=== PATIENT | male | born 1960 | race Caucasian/White ===

== ENCOUNTER 2019-11-27 16:04 | Emergency (ER) | payer BC ==
[2019-11-27] MEDS ORDERED: Hydromorphone 1 mg/ml Ampule IV ONE (16:45)
[2019-11-27] MEDS ORDERED: Sodium Chloride 0.9% 1000 ML 1,000 ML IV SCH (16:45)
[2019-11-27] MEDS ORDERED: Sodium Chloride 0.9% 1000 ML 1,000 ML ONE (16:52)
[2019-11-27] MEDS ORDERED: Hydromorphone 1 mg/ml Ampule ONE (16:52)
--- NOTE | 2019-11-27 16:59 | XRAY ---
Indication: Pain following fall. Comparison: None 3 view right elbow demonstrates posterior soft tissue swelling. No other bony, articular, or soft tissue abnormalities.
--- NOTE | 2019-11-27 18:28 | ERPHSYRPT ---
- History of Present Illness Time Seen by Provider: 11/27/19 16:40 Patient Subjective Stated Complaint: . Triage Nursing Assessment: . Physician History: Is a 58-year-old white male who was walking his dog and had a leash wrapped around his right upper extremity and the dog took off causing a degloving motion to the soft tissues of the right upper extremity. Planes of pain in the elbow and swelling over the olecranon bursa. Has any other injury. Occurred: just prior to arrival Method of Injury: twisted Quality: constant Severity of Pain-Max: moderate Severity of Pain-Current: moderate Extremities Pain Location: arm: right, elbow: right, forearm: right Modifying Factors: Improves With: pain medication Associated Symptoms: none Allergies/Adverse Reactions: No Known Drug Allergies Allergy (Unverified 11/27/19 16:36) Home Medications: Lansoprazole 30 mg PO DAILY 11/27/19 [History] Lisinopril 10 mg [Zestril 10 MG] 10 mg PO DAILY 11/27/19 [History] Mupirocin [Bactroban OINTMENT] 22 gm TOP DAILY 11/27/19 [History] glipiZIDE [Glipizide] 5 mg PO DAILY 11/27/19 [History] Hx Tetanus, Diphtheria Vaccination/Date Given: No Hx Influenza Vaccination/Date Given: No Hx Pneumococcal Vaccination/Date Given: No Immunizations Up to Date: No Travel Risk - International Travel Have you traveled outside of the country in past 3 weeks: No - Coronavirus Screening Close contact with a COVID-19 positive Pt in past 14-21 Days: No - Review of Systems Constitutional: No Fever, No Chills Eyes: No Symptoms Ears, Nose, & Throat: No Symptoms Respiratory: No Cough, No Dyspnea Cardiac: No Chest Pain, No Edema, No Syncope Abdominal/Gastrointestinal: No Abdominal Pain, No Nausea, No Vomiting, No Diarrhea Genitourinary Symptoms: No Dysuria Musculoskeletal: Joint Pain, Joint Swelling, No Back Pain, No Neck Pain Skin: No Rash Neurological: No Dizziness, No Focal Weakness, No Sensory Changes Psychological: No Symptoms Endocrine: No Symptoms All Other Systems: Reviewed and Negative - Past Medical History Pertinent Past Medical History: Yes Cardiac History: Hypertension Endocrine Medical History: Diabetes Type II GI Medical History: GERD - Past Surgical History Past Surgical History: Yes Gastrointestinal: Colon Resection Musculoskeletal: Orthopedic Surgery Other Surgical History: gena feet sx, carpel tunnel - Social History Smoking Status: Never smoker Exposure to second hand smoke: No Drug Use: none Patient Lives Alone: No - Nursing Vital Signs Nursing Vital Signs: Initial Vital Signs Temperature 98 F 11/27/19 16:29 Pulse Rate 84 11/27/19 16:29 Respiratory Rate 18 11/27/19 16:29 Blood Pressure 142/95 11/27/19 16:29 O2 Sat by Pulse Oximetry 94 L 11/27/19 16:29 Pain Scale Pain Intensity 5 - Physical Exam General Appearance: alert Eyes, Ears, Nose, Throat Exam: moist mucous membranes Neck Exam: non-tender, supple Cardiovascular/Respiratory Exam: chest non-tender, normal breath sounds, regular rate/rhythm, no respiratory distress Abdominal Exam: non-tender, No guarding Back Exam: normal inspection, No vertebral tenderness Shoulder Exam: normal inspection Elbow/Forearm Exam: deformity, limited ROM, soft tissue tenderness, swelling ( Of the right upper extremity shows both swelling of the olecranon bursa and tenderness with movement of the elbow.) Wrist Exam: normal inspection Hand Exam: normal inspection Neuro/Tendon Exam: normal sensation, normal motor functions Mental Status Exam: alert, oriented x 3, cooperative Skin Exam: normal color, warm, dry SpO2: 94 - Course Nursing assessment & vital signs reviewed: Yes - Radiology Exams Right Elbow X-ray Interpretation: Reviewed by me, No Fracture, No Subluxation Ordered Tests: Active Orders 24 hr Category Date Time Status ELBOW (MINIMUM 3 VIEWS) Stat Exams 11/27/19 16:26 Completed Medication Summary Generic Name Dose Route Start Last Admin Trade Name Freq PRN Reason Stop Dose Admin Sodium Chloride 1,000 mls @ 100 mls/hr 11/27/19 16:45 11/27/19 16:58 Sodium Chloride 0.9% 1000 Ml IV 12/27/19 16:44 100 mls/hr .Q10H JOLEEN Administration Discontinued Medications Generic Name Dose Route Start Last Admin Trade Name Freq PRN Reason Stop Dose Admin Hydromorphone HCl 1 mg 11/27/19 16:45 11/27/19 16:58 Hydromorphone 1 Mg/Ml Ampule IV 11/27/19 16:46 1 mg STAT ONE Administration Hydromorphone HCl Confirm 11/27/19 16:52 Hydromorphone 1 Mg/Ml Ampule Administered 11/27/19 16:53 Dose 1 mg .ROUTE .STK-MED ONE - Progress Progress: improved - Departure Departure Disposition: Home Clinical Impression: Contusion of right upper extremity Condition: Stable Critical Care Time: No Referrals: SHAWN KUO MD [Primary Care Provider] - Prescriptions: Hydrocodone/APAP 5-325 Tab^^^ [[place] 5-325 Tablet^^^] 1 tab PO Q6HPRN PRN #10 tablet MDD 6 PRN Reason: Pain
[2019-11-27 18:52] VITALS: BP 145/94
[2019-11-27 18:53] VITALS: PULSE 73; O2SAT 94
== END 2019-11-27 19:03 | disposition home or self-care (01) ==
LOC: ED 16:04
DX: S40.021A Contusion of right upper arm, initial encounter (principal); X50.1XXA Overexertion from prolonged static or awkward postures, initial encounter; Y93.K1 Activity, walking an animal; Y92.89 Other specified places as the place of occurrence of the external cause
CPT/HCPCS: 73080; 96374; 99284; J1170